=== PATIENT | female | born 1960 | race Two or more races ===

== ENCOUNTER 2019-12-07 22:55 | Emergency (ER) | payer BC ==
[~2019-12-07] VITALS: Ht 157.5 cm; Wt 106.6 kg
[2019-12-07 23:51] LABS: Basophils # (auto) 0.1 10 ^3/uL (0-0.2); Basophils % (auto) 0.9 % (0.0-2.0); Eosinophils # (auto) 0.1 10 ^3/uL (0-0.8); Hematocrit 38.6 % (36.0-46.0); Hemoglobin 13.2 g/dL (12.2-16.2); Lymphocytes # (auto) 1.9 10 ^3/uL (0.4-5.4); Mean Corpuscular Hgb Conc. 34.1 g/dL (32.0-36.0); Mean Corpuscular Volume 87.8 fL (80.0-100.0); Monocytes # (auto) 0.4 10 ^3/uL (0-1.3); Monocytes % (auto) 6.3 % (0.0-12.0); Neutrophils # (auto) 4.2 10 ^3/uL (1.6-8.6); Neutrophils % (auto) 62.8 % (37.0-80.0); Nucleated Red Blood Cells % 0.1 %; Platelet Count (auto) 259 10^3/uL (140-450); Red Cell Distribution Width 13.5 % (11.8-14.3); White Blood Cell 6.7 10^3/uL (4.4-10.8)
[2019-12-08 00:06] LABS: INR 0.94 (0.9-1.15); Partial Thromboplastin Time 27.1 sec (23.0-31.2)
[2019-12-08 00:14] LABS: Alanine Aminotransferase 38 U/L (13-56); Albumin 3.5 g/dL (3.4-5.0); Anion Gap 6 (5-15); Aspartate Aminotransferase 24 U/L (15-37); Blood Urea Nitrogen 22 mg/dL (7-18); Calcium 9.1 mg/dL (8.5-10.1); Carbon Dioxide 27 mmol/L (21-32); Chloride 106 mmol/L (98-107); GFR African American 108 mL/min; GFR Non-African American 89 mL/min; Glucose 108 mg/dL (74-106); Magnesium 1.8 mg/dL (1.6-2.6); Potassium 3.3 mmol/L (3.5-5.1); Sodium 139 mmol/L (136-145)
[2019-12-08 00:18] LABS: Alkaline Phosphatase 131 U/L (45-117); Bilirubin, Total 0.4 mg/dL (0.2-1.0); Total Protein 7.3 g/dL (6.4-8.2)
[2019-12-08] MEDS ORDERED: IOHEXOL 350 MG/ML 100ML IJ ONE (02:52)
[2019-12-08 06:00] VITALS: BP 131/74
== END 2019-12-08 06:18 | disposition home or self-care (01) ==
LOC: ER 22:58
DX: R07.89 Other chest pain (principal); F41.9 Anxiety disorder, unspecified
CPT/HCPCS: 36415; 71045; 71275; 80053; 83735; 83880; 84443; 84484; 85025; 85379; 85610; 85730; 93005; 99285; Q9967

== ENCOUNTER 2023-03-17 18:54 | Emergency (ER) | payer BC ==
[~2023-03-17] VITALS: Ht 160 cm; Wt 97.4 kg
[2023-03-17 19:52] VITALS: BP 127/61; PULSE 72; RESP 24; O2SAT 95
[2023-03-18 00:32] LABS: Urine Bacteria FEW /hpf (None Seen); Urine Blood Negative /uL (Negative); Urine Clarity Clear (Clear); Urine Color Yellow (Yellow); Urine Mucus FEW (None Seen); Urine Protein, UAD Negative (Negative); Urine Specific Gravity 1.022 (1.001-1.035); Urine Urobilinogen Normal (Negative); Urine WBC 15 /hpf (0 - 5); Urine pH 6.5 (5.0-8.0)
== END 2023-03-17 22:23 | disposition left against medical advice (07) ==
LOC: ER 18:54
DX: R19.7 Diarrhea, unspecified (principal); Z53.21 Procedure and treatment not carried out due to patient leaving prior to being seen by health care provider
CPT/HCPCS: 81001

== ENCOUNTER 2024-04-26 13:26 | Inpatient (IN) | payer BC ==
[~2024-04-26] VITALS: Ht 160 cm; Wt 97.6 kg
--- NOTE | 2024-04-26 14:47 | ED.PDOC ---
Musculoskeletal HPI Comments 63 y/o F, presents to the ED for CC of lower extremity swelling. Patient states, she has been experiencing right lower leg swelling with associated shortness of breath x3days. Patient denies any current blood thinners. Patient denies chest pain, N/V/D, fever, or chills. No other symptoms or modifying factors at this ti me. 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 Family History Family History: Reviewed,noncontributory to illness Social History Smoker: Non-Smoker Alcohol: Denies ETOH Use Drugs: Denies Drug Use Lives In: Home Constitutional: denies: chills, diaphoresis, fatigue, fever, malaise, sweats, weakness, others EENTM: denies: blurred vision, double vision, ear bleeding, ear discharge, ear drainage, ear pain, ear ringing, eye pain, eye redness, hearing loss, mouth pain, mouth swelling, nasal discharge, nose bleeding, nose congestion, nose pain, photophobia, tearing, throat pain, throat swelling, voice changes, others Respiratory: denies: cough, hemoptysis, orthopnea, SOB at rest, shortness of breath, SOB with excertion, stridor, wheezing, others Cardiovascular: denies: chest pain, dizzy spells, diaphoresis, Dyspnea on exertion, edema, irregular heart beat, left arm pain, lightheadedness, palpitations, PND, syncope, others Gastrointestinal: denies: abdomen distended, abdominal pain, blood streaked bowels, constipated, diarrhea, dysphagia, difficulty swallowing, hematemesis, melena, nausea, poor appetite, poor fluid intake, rectal bleeding, rectal pain, vomiting, others Genitourinary: denies: abnormal vagina bleeding, burning, dyspareunia, dysuria, flank pain, frequency, hematuria, incontinence, pain, , vagina discharge, urgency, others Neurological: denies: dizziness, fainting, headache, left sided numbness, left sided weakness, numbness, paresthesia, pre-existing deficit, right sided numbness, right sided weakness, seizure, speech problems, tingling, tremors, weakness, others Musculoskeletal: denies: back pain, gout, joint pain, joint swelling, muscle pain, muscle stiffness, neck pain, others Integumetry: denies: bruises, change in color, change in hair/nails, dryness, laceration, lesions, lumps, rash, wounds, others Allergic/Immunocompromised: denies: Difficulty Healing, Frequent Infections, Hives, Itching, others Hematologic/Lymphatic: denies: anemia, blood clots, easy bleeding, easy bruising, swollen glands, others Endocrine: denies: excessive hunger, excessive sweating, excessive thirst, excessive urination, flushing, intolerance to cold, intolerance to heat, unexplained weight gain, unexplained weight loss, others Psychiatric: denies: anxiety, bipolar disorder, depression, hopeless, panic disorder, schizophrenia, sleepless, suicidal, others All Other Systems: Reviewed and Negative Physical Exam General Appearance: Moderate Distress HEENT: Normal ENT Inspection, Pharynx Normal, TMs Normal Neck: Full Range of Motion, Non-Tender, Normal, Normal Inspection Respiratory: Chest Non-Tender, Lungs Clear, No Accessory Muscle Use, No Respiratory Distress, Normal Breath Sounds Cardiovascular: No Edema, No JVD, No Murmur, No Gallop, Normal Peripheral Pulses, Regular Rate/Rhythm Breast Exam: Deferred Gastrointestinal: No Organomegaly, Non Tender, No Pulsatile Mass, Normal Bowel Sounds, Soft Genitalia: Deferred Pelvic: Deferred Rectal: Deferred Extremities: No calf tenderness, Normal capillary refill, No pedal edema, Swelling (Right lower extremity swelling) Musculoskeletal : Apperance: Normal Neurologic: Alert, assistant vice president II-XII nml as Tested, No Motor Deficits, Normal Affect, Normal Mood, No Sensory Deficits Cerebellar Function: Normal Reflexes: Normal Skin: Dry, Normal Color, Warm Lymphatic: No Adenopathy Was a procedure done? Was a procedure done?: No Differential Diagnosis EXT Differential Diagnosis: Cellulitis, Deep Vein Thrombosis X-Ray, Labs, Meds, VS Vital Signs Date Time Temp Pulse Resp B/P (MAP) Pulse Ox O2 Delivery O2 Flow Rate FiO2 2/11/25 13:48 97.5 78 20 120/57 (78) 96 Lab Test 04/26/24 15:11 Range/Units White Blood Count 5.2 4.4-10.8 10^3/uL Red Blood Count 4.54 4.0-5.20 10^6/uL Hemoglobin 13.6 12.2-16.2 g/dL Hematocrit 40.5 36.0-46.0 % Mean Corpuscular Volume 89.3 80.0-100.0 fL Mean Corpuscular Hemoglobin 30.0 28.0-32.0 pg Mean Corpuscular Hemoglobin Concent 33.6 32.0-36.0 g/dL Red Cell Distribution Width 13.4 11.8-14.3 % Platelet Count 254 140-450 10^3/uL Mean Platelet Volume 7.0 6.9-10.8 fL Neutrophils (%) (Auto) 63.8 37.0-80.0 % Lymphocytes (%) (Auto) 29.6 10.0-50.0 % Monocytes (%) (Auto) 4.0 0.0-12.0 % Eosinophils (%) (Auto) 1.9 0.0-7.0 % Basophils (%) (Auto) 0.7 0.0-2.0 % Neutrophils # (Auto) 3.3 1.6-8.6 10 ^3/uL Lymphocytes # (Auto) 1.5 0.4-5.4 10 ^3/uL Monocytes # (Auto) 0.2 0-1.3 10 ^3/uL Eosinophils # (Auto) 0.1 0-0.8 10 ^3/uL Basophils # (Auto) 0 0-0.2 10 ^3/uL Nucleated Red Blood Cells 0.0 % D-Dimer, Quantitative 0.99 H 0.0-0.49 mg/L FEU Sodium Level 141 136-145 mmol/L Potassium Level 3.8 3.5-5.1 mmol/L Chloride Level 105 98-107 mmol/L Carbon Dioxide Level 31 20-31 mmol/L Anion Gap 5 5-15 Blood Urea Nitrogen 13 9-23 mg/dL Creatinine 0.56 0.550-1.02 mg/dL Glomerular Filtration Rate Calc 102 >90 mL/min BUN/Creatinine Ratio 23.2 H 10.0-20.0 Serum Glucose 130 H 74-106 mg/dL Calcium Level 10.1 8.7-10.4 mg/dL Troponin I High Sensitivity < 3 L </=34 ng/L LT LOWER DVT: Findings: No visible intraluminal venous thrombus. No evidence of incompressibility or abnormal color or spectral Doppler flow visualized in the left lower extremity veins including, the common femoral vein, deep femoral vein, proximal mid and distal superficial femoral vein, and popliteal vein. Greater saphenous vein grossly unremarkable. Impression: No sonographic evidence of left lower extremity deep venous thrombosis. ATED BY: CAROL GOEL DO DICTATED DATE/TIME: 04/26/241542 SIGNED BY: CAROL GOEL DO SIGNED DATE/TIME: 04/26/241542 CC: CT ANGIO: Findings: Pulmonary artery: Normal caliber of the pulmonary artery. No large central or large segmental pulmonary embolism. Lower neck: Normal thyroid. Lungs: No focal consolidation, pulmonary mass, or suspicious pulmonary nodule. Heart/Vascular Structures: Normal heart size. Normal caliber and enhancement of the aorta. Lymph Nodes: No adenopathy Pleura: No pleural effusion or significant pneumothorax. Musculoskeletal: No acute osseous abnormality. Upper abdomen: Limited portions of the upper abdomen are unremarkable. IMPRESSION: 1. No pulmonary embolism. 2. No acute intrathoracic abnormality. ATED BY: MARIBETH GRANDE Jr., DO DICTATED DATE/TIME: 04/26/241715 SIGNED BY: MARIBETH GRANDE Jr., DO SIGNED DATE/TIME: 04/26/241715 CC: At this time the patient's CBC is within normal limits The chemistry panel is within normal limits The patient was being admitted to the hospitalist An IV Hep-Lock was established. Images Reviewed?: Images reviewed and evaluated by me Time of 1ST Reevaluation: 14:45 Reevaluation 1ST: Unchanged Patient Education/Counseling: Diagnosis, Treatment, Prognosis Family Education/Counseling: No Family Present Additional Information - I reviewed the following notes from patient's past medical encounters: 03/17/24 DX: DIARRHEA - The following tests were ordered, and results were reviewed by me: TROPONIN, CBC, D-DIMER, LT LOWER DVT, CT ANGIO - I reviewed and agreed with the following test results read by other provider: LT LOWER DVT, CT ANGIO - I discussed treatments and results with medical personnel and: PATIENT Departure 1 Departure Time of Disposition: 18:39 Impression: Primary Impression: Shortness of breath Additional Impression: Right leg swelling Disposition: ADMITTED INPATIENT Admit to: Tele Condition: Fair Critical Care Note Critical Care Time?: No Stability Stability form required: Yes Unstable for transfer: Telemetry monitoring (Telemetry monitoring required), ED Physician Assesment (Clinical assesment) Heart Score Heart Score: Heart Score Response (Comments) Value History N/A 0 EKG N/A 0 Age N/A 0 Risk Factors N/A 0 Troponin N/A 0 Total 0 I personally scribed for KARTHIK KNIGHT MD ([email or web address]) on 04/26/24 at 14:47. Electronically submitted by Kelly Montalvo ([email or web address]). I personally scribed for KARTHIK KNIGHT MD ([email or web address]) on 04/26/24 at 15:31. Electronically submitted by Kelly Montalvo ([email or web address]). I personally scribed for KARTHIK KNIGHT MD ([email or web address]) on 04/26/24 at 16:07. Electronically submitted by Kelly Montalvo ([email or web address]). I personally scribed for KARTHIK KNIGHT MD ([email or web address]) on 04/26/24 at 17:20. Electronically submitted by Kelly Montalvo ([email or web address]). KARTHIK KNIGHT MD Apr 26, 2024 14:47
[2024-04-26 15:23] LABS: Basophils # (auto) 0 10 ^3/uL (0-0.2); Basophils % (auto) 0.7 % (0.0-2.0); Eosinophils # (auto) 0.1 10 ^3/uL (0-0.8); Eosinophils % (auto) 1.9 % (0.0-7.0); Hematocrit 40.5 % (36.0-46.0); Hemoglobin 13.6 g/dL (12.2-16.2); Lymphocytes # (auto) 1.5 10 ^3/uL (0.4-5.4); Lymphocytes % (auto) 29.6 % (10.0-50.0); Mean Corpuscular Hgb Conc. 33.6 g/dL (32.0-36.0); Mean Corpuscular Volume 89.3 fL (80.0-100.0); Monocytes # (auto) 0.2 10 ^3/uL (0-1.3); Neutrophils # (auto) 3.3 10 ^3/uL (1.6-8.6); Neutrophils % (auto) 63.8 % (37.0-80.0); Platelet Count (auto) 254 10^3/uL (140-450); Red Blood Cells 4.54 10^6/uL (4.0-5.20); Red Cell Distribution Width 13.4 % (11.8-14.3); White Blood Cell 5.2 10^3/uL (4.4-10.8)
--- NOTE | 2024-04-26 15:46 | DVH ---
Procedure: US LT Lower DVT Study Date and Requested Time: 04/26/2024 02:37 PM History: cp Comparison: None Technique: Multiple high resolution lin-scale images with and without compression obtained of the le ft lower extremity veins, including the common femoral vein, deep femoral vein, proximal mid and dist al superficial femoral vein, and popliteal vein. Additional limited images of the greater saphenous v ein also obtained. Augmentation performed as indicated. Color and spectral doppler flow images obtain ed as indicated. Findings: No visible intraluminal venous thrombus. No evidence of incompressibility or abnormal color or spectr al Doppler flow visualized in the left lower extremity veins including, the common femoral vein, deep femoral vein, proximal mid and distal superficial femoral vein, and popliteal vein. Greater saphenou s vein grossly unremarkable. Impression: No sonographic evidence of left lower extremity deep venous thrombosis.
[2024-04-26 15:47] LABS: Chloride 105 mmol/L (98-107); Potassium 3.8 mmol/L (3.5-5.1); Sodium 141 mmol/L (136-145)
[2024-04-26 15:48] LABS: Anion Gap 5 (5-15); Calcium 10.1 mg/dL (8.7-10.4); Carbon Dioxide 31 mmol/L (20-31)
[2024-04-26 15:53] LABS: BUN/Creatinine Ratio 23.2 (10.0-20.0); Blood Urea Nitrogen 13 mg/dL (9-23); Glucose 130 mg/dL (74-106)
[2024-04-26] MEDS: IOHEXOL 350 MG/ML 100ML IJ ONE (16:29)
--- NOTE | 2024-04-26 17:18 | DVH ---
INDICATION: sob COMPARISON STUDY: 12/08/2019 TECHNIQUE: Multidetector CTA of the chest was performed of the chest with 100 cc of intravenous contr ast. PULMONARY ANGIOGRAPHY PROTOCOL was utilized using a bolus-tracking technique centered on the elaine n pulmonary artery. Axial, coronal and sagittal multiplanar and MIP reformats were performed. Sagittal and coronal MIP images were submitted for evaluation. Radiation Dose Information: CT Dose: CTDI volume is 27.55 mGy. Dose-length product is 922.71 mGy*cm Omnipaque 350: 100 mL The dose indicators for CT are the volume Computed Tomography (CT) Dose Index (CTDIvol) and the Dose Length Product (DLP), and are measured in units of mGy and mGy-cm, respectively. These indicators are not patient dose, but values generated from the CT scanner acquisition factors. The report includes radiation exposure data for exposures received during this examination. Findings: Pulmonary artery: Normal caliber of the pulmonary artery. No large central or large segmental pulmo nary embolism. Lower neck: Normal thyroid. Lungs: No focal consolidation, pulmonary mass, or suspicious pulmonary nodule. Heart/Vascular Structures: Normal heart size. Normal caliber and enhancement of the aorta. Lymph Nodes: No adenopathy Pleura: No pleural effusion or significant pneumothorax. Musculoskeletal: No acute osseous abnormality. Upper abdomen: Limited portions of the upper abdomen are unremarkable. IMPRESSION: 1. No pulmonary embolism. 2. No acute intrathoracic abnormality.
[2024-04-26] MEDS ORDERED: MORPHINE SULFATE INJ 2 MG/ml SYRG IV PRN (22:00)
[2024-04-26] MEDS ORDERED: ACETAMINOPHEN 325 MG TAB PO PRN (22:00)
[2024-04-26] MEDS: SODIUM CHLOR 0.9% PF (SALINE LOCK) 10ML VIAL/SYR IV SCH (22:00)
[2024-04-26] MEDS ORDERED: NITROGLYCERIN 0.4 MG SL TAB SL PRN (22:00)
[2024-04-26 23:11] LABS: INR 0.95 (0.9-1.15); Prothrombin Time 10.1 sec (9.3-11.8)
[2024-04-26 23:12] LABS: Magnesium 1.8 mg/dL (1.6-2.6)
--- NOTE | 2024-04-26 23:22 | DVHHPRES ---
History of Present Illness Resident Creating Document: ENE HUGHES RESIDENT History of Present Illness ROMEL AMATO is a 63-year-old female with a PMH of HLD, HTN, DVT, hypothyroidism presented to the ED with the chief complaints of bilateral lower extremity swelling since Thursday. Patient reported she has been started having left lower extremity swelling on Thursday, did not resolve, even started having swelling in the right leg eventually, associated with shortness of breaths. Patient reported shortness of breath has been ongoing for past 2 weeks with even mild exertion. Patient reported she never experienced this kind of symptoms in past. Patient also reported sharp pain in the back of neck which is shock-like with a had moments. On my assessment patient denies orthopnea, PND, fever, nausea, vomiting, chest pain, diaphoresis and other acute associated symptoms. PMH: HTN since 8 years( on losartan, amlodipine), hypothyroidism for 2 years( on levothyroxine 75 mcg), DVT in 2012 PSH: Right knee surgery 2 times, left hip surgery Family Hx: AFib in sister, brain aneurysm in mom, diabetes in all family except patient Social Hx: Lives Alone. Occasional alcohol. Denies active smoking (smoker 20 years ago 1 pack per day for 10-15 years), and other drug abuse Alergies: No known allergies Home medications: Losartan 100 mg, amlodipine 10 mg, levothyroxine 75 mcg, tizanidine Review of Systems Review of Systems Patient seen and examined at the bedside. Reported no new complaints, ordered echocardiogram and other lab test. Constitutional: No: Fever, Chills, Sweats, Weakness, Malaise, Other Eyes: No: Pain, Vision change, Conjunctivae inflammation, Eyelid inflammation, Other, Redness ENT: No: Ear pain, Ear discharge, Nose pain, Nose discharge, Nose congestion, Mouth pain, Mouth swelling, Throat pain, Throat swelling, Other Respiratory: No: Cough, Dry, Shortness of breath, SOB with excertion, Wheezing, Hemoptysis, Pleuritic Pain, Sputum, Wheezing, Other Cardiovascular: Edema Gastrointestinal: No: Nausea, Vomiting, Abdominal Pain, Diarrhea, Constipation, Melena, Hematochezia, Other Genitourinary: No Dysuria, No Frequency, No Incontinence, No Hematuria, No Retention, No Other Musculoskeletal: No: other, neck pain, shoulder pain, arm pain, back pain, hand pain, leg pain, foot pain Skin: No: Rash, Lesions, Jaundice, Bruising, Other Neurological: No: Weakness, Numbness, Incoordination, Change in speech, Confusion, Seizures, Other Allergies: Coded Allergies: NO KNOWN ALLERGIES (Unverified , 12/08/19) Medications Current Medications Medications Dose Ordered Sig/Itzel Route Start Time Stop Time Status Last Admin Dose Admin Sodium Chloride 10 ml Q8HR IV 04/26/24 22:00 Enoxaparin Sodium 40 mg DAILY SC 04/27/24 10:00 Acetaminophen 650 mg Q6HP PRN PO 04/26/24 22:00 Nitroglycerin 0.4 mg Q5MINP PRN SL 04/26/24 22:00 Morphine Sulfate 2 mg Q30M PRN IV 04/26/24 22:00 Furosemide 40 mg DAILY IV 04/27/24 10:00 Losartan Potassium 100 mg DAILY PO 04/27/24 10:00 Exam Vital Signs Vital Signs Date Time Temp Pulse Resp B/P (MAP) Pulse Ox O2 Delivery O2 Flow Rate FiO2 04/26/24 20:24 98.7 80 18 119/67 (84) 95 98.7 Exam Pt is lying on bed General Appearance: Alert, Oriented X3, Cooperative, Not in acute distress HEENT: Atraumatic, Mucous membranes moist/pink Respiratory: Clear to auscultation, Normal air movement, No added sounds Cardiovascular: Regular rate, Normal S1, Normal S2, No murmurs Abdominal: Active bowel sounds, Soft, no distention, no tenderness Extremities: 2+ BLE edema, Normal pulses Skin: No Significant rash, except past surgical scars Neuro: Normal speech, sensorimotor deficits none Psych/Mental Status: Mental status NL, Mood NL Nurse was there as sharperone during examination Labs/Xrays Labs Test 04/26/24 22:39 04/26/24 15:11 Range/Units Prothrombin Time 10.1 9.3-11.8 sec Prothrombin Time INR 0.95 0.9-1.15 Activated Partial Thromboplast Time 27.0 24.5-34.5 SEC Hemoglobin A1c 5.4 <5.7 % A1C Magnesium Level 1.8 1.6-2.6 mg/dL White Blood Count 5.2 4.4-10.8 10^3/uL Red Blood Count 4.54 4.0-5.20 10^6/uL Hemoglobin 13.6 12.2-16.2 g/dL Hematocrit 40.5 36.0-46.0 % Mean Corpuscular Volume 89.3 80.0-100.0 fL Mean Corpuscular Hemoglobin 30.0 28.0-32.0 pg Mean Corpuscular Hemoglobin Concent 33.6 32.0-36.0 g/dL Red Cell Distribution Width 13.4 11.8-14.3 % Platelet Count 254 140-450 10^3/uL Mean Platelet Volume 7.0 6.9-10.8 fL Neutrophils (%) (Auto) 63.8 37.0-80.0 % Lymphocytes (%) (Auto) 29.6 10.0-50.0 % Monocytes (%) (Auto) 4.0 0.0-12.0 % Eosinophils (%) (Auto) 1.9 0.0-7.0 % Basophils (%) (Auto) 0.7 0.0-2.0 % Neutrophils # (Auto) 3.3 1.6-8.6 10 ^3/uL Lymphocytes # (Auto) 1.5 0.4-5.4 10 ^3/uL Monocytes # (Auto) 0.2 0-1.3 10 ^3/uL Eosinophils # (Auto) 0.1 0-0.8 10 ^3/uL Basophils # (Auto) 0 0-0.2 10 ^3/uL Nucleated Red Blood Cells 0.0 % D-Dimer, Quantitative 0.99 H 0.0-0.49 mg/L FEU Sodium Level 141 136-145 mmol/L Potassium Level 3.8 3.5-5.1 mmol/L Chloride Level 105 98-107 mmol/L Carbon Dioxide Level 31 20-31 mmol/L Anion Gap 5 5-15 Blood Urea Nitrogen 13 9-23 mg/dL Creatinine 0.56 0.550-1.02 mg/dL Glomerular Filtration Rate Calc 102 >90 mL/min BUN/Creatinine Ratio 23.2 H 10.0-20.0 Serum Glucose 130 H 74-106 mg/dL Calcium Level 10.1 8.7-10.4 mg/dL Troponin I High Sensitivity < 3 L </=34 ng/L B-Type Natriuretic Peptide 34.85 0-100 pg/mL Assessment/Plan Assessment/Plan # ?? Acute systolic VS diastolic CHF -admitted to telemetry -currently giving Lasix 40 mg, losartan -ordered EKG -Ordered echocardiogram, TSH, lipid panel # Uncontrolled HTN -monitor blood pressure -currently on losartan # Hypothyroidism -ordered new TSH -resume home meds # H/o LE DVT -ordered new DVT scan which showed negative PUD PPX: Not indicated for now VTE PPX: Lovenox Diet: Cardiac diet Goals of care discussed with the patient for more than 27 minutes: Full code status Case discussed with Dr. Hernandez, patient and nurse Plan discussed with: Patient, Other (RN) My Orders Orders - ENE HUGHES RESIDENT Procedure Category Date Status Time Admit ADMIT 04/26/24 Transmitted 21:52 Allergies ANDREA 04/26/24 In Process 21:52 Code Status CODE 04/26/24 Transmitted 21:52 Sodium Chloride Lock PHA 04/26/24 In Process (Saline Lock Ns) 22:00 Enoxaparin Sodium PHA 04/27/24 In Process (Lovenox) 10:00 Complete Blood Count LAB 04/27/24 Verified 04:00 Comprehensive LAB 04/27/24 Verified Metabolic Panel 04:00 Cardiac DIET 04/27/24 Transmitted Diet-2gna,Lofat,Lochol Breakfast Echo 2d Mode Cardiac US 04/26/24 Logged DOP 21:52 Condition: Stable ANDREA 04/26/24 In Process 21:52 Acetaminophen Tablet PHA 04/26/24 In Process (Tylenol Tablet) 22:00 Nitroglycerin PHA 04/26/24 In Process Sublingual (Ntrostat 22:00 Morphine Sulfate PHA 04/26/24 In Process Injection 22:00 Oxygen By Nasal RT 04/26/24 Transmitted Cannula 21:52 Stat Ekg For Chest ANDREA 04/26/24 In Process Pain 21:52 Notify Of Changes ANDREA 04/26/24 In Process From Base 21:52 Pad Machine Operator For ANDREA 04/26/24 In Process 24 Hours 21:52 Emergency Dysrhythmia ANDREA 04/26/24 In Process Protocol 21:52 Rhythm Strips Once ANDREA 04/26/24 In Process Every Shift 21:52 Thyroid Stimulating LAB 04/26/24 In Process Hormone 22:29 Urinalysis LAB 04/26/24 Logged 22:29 Magnesium LAB 04/26/24 In Process 22:29 Lipid Panel LAB 04/26/24 In Process 22:29 Drug Screen LAB 04/26/24 Logged 22:29 Furosemide Injection PHA 04/27/24 In Process (Lasix Injection) 10:00 Losartan Tablet PHA 04/27/24 In Process (Cozaar Tablet) 10:00 Electrocardigram EKG 04/26/24 Logged 22:29 Rapid Influenza A&B LAB 04/26/24 Logged 23:15 Covid19 Antigen [facility] 04/26/24 Logged Date of Service: Apr 26, 2024 Billing Provider: LIO HERNANDEZ MD Common Visit Codes: [id number] INP/OBS CARE (HIGH) ENE HUGHES RESIDENT Apr 26, 2024 23:22 LIO HERNANDEZ MD Apr 27, 2024 23:49
[2024-04-26] MEDS: FUROSEMIDE 40 MG/4 ML VIAL IV ONE (23:58)
[2024-04-27] VITALS (8 sets, daily range): BP systolic 95–114; BP diastolic 46–60; PULSE 60–78; RESP 11–15; TEMP 36.8; O2SAT 95–98
[2024-04-27 01:16] LABS: Urine Bacteria None Seen /hpf (None Seen)
[2024-04-27 01:32] LABS: Urine Blood Negative /uL (Negative); Urine Clarity Clear (Clear); Urine Color Colorless (Yellow); Urine Protein, UAD Negative (Negative); Urine Specific Gravity 1.012 (1.001-1.035); Urine Squamous Epithelial Cell FEW /hpf (<5); Urine Urobilinogen Normal (Negative); Urine WBC 6 /HPF (0-5)
[2024-04-27 01:50] LABS: COVID19 ANTIGEN SOFIA FIA NEGATIVE (NEGATIVE); Rapid Influenza A Negative (Negative); Rapid Influenza B Negative (Negative)
[2024-04-27 05:48] LABS: Basophils # (auto) 0.1 10 ^3/uL (0-0.2); Eosinophils # (auto) 0.3 10 ^3/uL (0-0.8); Eosinophils % (auto) 3.6 % (0.0-7.0); Hematocrit 39.9 % (36.0-46.0); Hemoglobin 13.4 g/dL (12.2-16.2); Lymphocytes # (auto) 2.5 10 ^3/uL (0.4-5.4); Mean Corpuscular Hgb Conc. 33.6 g/dL (32.0-36.0); Mean Corpuscular Volume 89.1 fL (80.0-100.0); Monocytes # (auto) 0.5 10 ^3/uL (0-1.3); Monocytes % (auto) 6.9 % (0.0-12.0); Neutrophils # (auto) 3.8 10 ^3/uL (1.6-8.6); Neutrophils % (auto) 53.5 % (37.0-80.0); Nucleated Red Blood Cells % 0.3 %; Platelet Count (auto) 226 10^3/uL (140-450); Red Blood Cells 4.48 10^6/uL (4.0-5.20); Red Cell Distribution Width 13.6 % (11.8-14.3); White Blood Cell 7.1 10^3/uL (4.4-10.8)
[2024-04-27 05:49] LABS: Albumin 4.2 g/dL (3.2-4.8); Alkaline Phosphatase 112 U/L (46-116); Anion Gap 8 (5-15); Aspartate Aminotransferase 33 U/L (13-40); Blood Urea Nitrogen 15 mg/dL (9-23); Calcium 9.7 mg/dL (8.7-10.4); Carbon Dioxide 28 mmol/L (20-31); Chloride 104 mmol/L (98-107); Glucose 91 mg/dL (74-106); Sodium 140 mmol/L (136-145)
[2024-04-27 05:50] LABS: Bilirubin, Total 0.6 mg/dL (0.2-1.0); Total Protein 6.7 g/dL (5.7-8.2)
[2024-04-27 05:57] LABS: Alanine Aminotransferase 47 U/L (7-40); Potassium 3.3 mmol/L (3.5-5.1)
[2024-04-27] MEDS: LEVOTHYROXINE SODIUM 25 MCG TAB PO SCH (06:17)
[2024-04-27] MEDS: LOSARTAN POTASSIUM 50 MG TAB PO SCH (09:00)
[2024-04-27] MEDS ORDERED: LOSARTAN POTASSIUM 50 MG TAB PO SCH (10:00)
[2024-04-27] MEDS ORDERED: FUROSEMIDE 40 MG/4 ML VIAL IV SCH (10:00)
[2024-04-27] MEDS: FUROSEMIDE 40 MG/4 ML VIAL IV SCH (10:00)
[2024-04-27] MEDS: POTASSIUM CHL 20 Meq TABLET PO ONE (10:26)
[2024-04-27] MEDS: ENOXAPARIN SOD 40 MG/0.4 ML SYRINGE SC SCH (10:27)
[2024-04-27 13:30] LABS: Amphetamine Screen, Urine Neg (NEGATIVE); Barbiturate Scree,Urine Neg (NEGATIVE); Benzodiazephine Screen, Urine Neg (NEGATIVE); Cocaine Screen, Urine Neg (NEGATIVE); Opiate Scree,Urine Neg (NEGATIVE); Phencyclidine Screen, Urine Neg (NEGATIVE)
[2024-04-27 13:37] LABS: Cannabinoid Screen, Urine Neg (NEGATIVE)
--- NOTE | 2024-04-27 15:33 | DVHSR ---
APPROVED REPORT EXAM: Two-dimensional and M-mode echocardiogram with Doppler and color Doppler. Blood Pressure: 95/55 mmHg INDICATION ? chf RISK FACTORS Height: 5'3, Weight: 215 DIMENSIONS LVDd4.4 (3.8-5.7cm)LA (2D)3.7 (1.9-4.0cm)Aortic Root3.0 (2.0-3.7cm) LVDs2.8 (2.5-4.0cm)LA (MM) (1.9-4.0cm)Aortic Cusp Exc1.5 (1.5-2.0cm) EF (%) 64.0 (55-70%)Rt. Atrium3.0 (1.9-4.0cm)Asc. Aorta cm IVSd0.7 (0.7-1.1cm)RV (D)3.6 (1.8-2.4cm) PWd0.7 (0.7-1.1cm) Mitral Valve MitralMitral Stenosis E wave0.65m/sMV Mean GR.mmHg A wave0.88m/sMV Peak GR.34mmHg E/A ratio0.72D MVAcm2 DECEL [id number] 1/2 Timems Aortic Valve Aortic ValveAortic Stenosis V10.99m/Michelle Mean GR.3mmHg V21.24m/Michelle Peak GR.6mmHg LVOT Diameter1.9 (1.8-2.4cm)Doppler AVA2.26cm2 Pulmonic Valve V20.98m/s Tricuspid Valve TR Velocity2.27m/s [id number] Conclusion lvef 60% by visual estimate mild lvh normal rv function, mild enlarged moderate left atrium enlarged no severe valve abnormalities noted
--- NOTE | 2024-04-27 15:42 | DVHPNRES ---
Progress Note Date Seen: Apr 27, 2024 Resident Creating Document: SHIVA SAHU RESIDENT Medical Necessity Reason Pt with a Central, PICC or Fol: No (RN) Subjective Review of Systems Patient is 63 years old female with past medical history of hypertension, hyperlipidemia, DVT in 2017 after left hip surgery, hypothyroidism came with a complaint of bilateral leg swelling. As the patient patient has been having bilateral leg swelling for last 2 weeks. The swelling started on the left leg followed by right leg which is getting worse for last 2 weeks. The patient also reported exertional short of breath. The patient reported he can walk up to the parking lot then she gets short of breath. Patient reported she recently started taking amlodipine 1 month before. Patient also complained of neck pain for last 2 months, intermittent, no radiation, no aggravating or relieving factor. The patient denied any chest pain, palpitation, dizziness, change in vision, dysarthria, acute joint swelling. Initial lab workup revealed WBC 5.2, hemoglobin 13, platelet 254, sodium 141, potassium 3.8, serum creatinine 0.56, HGB A1c 5.4, magnesium 1.8, troponin 9> 3, BNP 34, TSH 3.7. CT angio revealed no pulmonary embolism. No acute intra thoracic abnormality. Doppler study of left lower extremity - negative for DVT. Echo 2D revealed LVEF 60%. Mild LVH. Moderate left atrial enlargement. Right ventricle mildly enlarged. PMH: HTN since 8 years( on losartan, amlodipine), hypothyroidism for 2 years( on levothyroxine 75 mcg), DVT in 2012 PSH: Right knee surgery 2 times, left hip surgery Family Hx: AFib in sister, brain aneurysm in mom, diabetes in all family except patient Social Hx: Lives Alone. Occasional alcohol. Denies active smoking (smoker 20 years ago 1 pack per day for 10-15 years), and other drug abuse Alergies: No known allergies Home medications: Losartan 100 mg, amlodipine 10 mg, levothyroxine 75 mcg, tizanidine Review of Systems Patient seen and examined at the bedside. Reported no new complaints, ordered echocardiogram and other lab test. Constitutional: No: Fever, Chills, Sweats, Weakness, Malaise, Other Eyes: No: Pain, Vision change, Conjunctivae inflammation, Eyelid inflammation, Other, Redness ENT: No: Ear pain, Ear discharge, Nose pain, Nose discharge, Nose congestion, Mouth pain, Mouth swelling, Throat pain, Throat swelling, Other Respiratory: No: Cough, Dry, Shortness of breath, SOB with excertion, Wheezing, Hemoptysis, Pleuritic Pain, Sputum, Wheezing, Other Cardiovascular: Edema Gastrointestinal: No: Nausea, Vomiting, Abdominal Pain, Diarrhea, Constipation, Melena, Hematochezia, Other Genitourinary: No Dysuria, No Frequency, No Incontinence, No Hematuria, No Retention, No Other Musculoskeletal: No: other, neck pain, shoulder pain, arm pain, back pain, hand pain, leg pain, foot pain Skin: No: Rash, Lesions, Jaundice, Bruising, Other Neurological: No: Weakness, Numbness, Incoordination, Change in speech, Confusion, Seizures, Other Allergies: Coded Allergies: NO KNOWN ALLERGIES (Unverified , 12/08/19) The patient was seen today for clinical evaluation. Labs and chart reviewed. The patient reported feeling better today. Complete BP bilateral leg swelling. As blood pressure was trending down all antihypertensive medication has been on hold. We will continue blood pressure. Doppler study of left lower extremity - negative for DVT. Echo 2D revealed LVEF 60%. Mild LVH. Moderate left atrial enlargement. Right ventricle mildly enlarged. Objective vital signs Vital Sign Date Time Temp Pulse Resp B/P (MAP) Pulse Ox O2 Delivery O2 Flow Rate FiO2 04/27/24 13:00 98.5 63 15 97/46 (63) 98 98.5 04/27/24 02:20 Room Air* 0 21 Total Intake and Output 04/26/24 04/26/24 04/27/24 15:00 23:00 07:00 Intake Total 200 ml Balance 200 ml medications Current Medications Medications Dose Ordered Sig/Itzel Route Start Time Stop Time Status Last Admin Dose Admin Sodium Chloride 10 ml Q8HR IV 04/26/24 22:00 04/27/24 06:08 10 ML Enoxaparin Sodium 40 mg DAILY SC 04/27/24 10:00 04/27/24 10:27 40 MG Acetaminophen 650 mg Q6HP PRN PO 04/26/24 22:00 Nitroglycerin 0.4 mg Q5MINP PRN SL 04/26/24 22:00 Morphine Sulfate 2 mg Q30M PRN IV 04/26/24 22:00 Levothyroxine Sodium 75 mcg QAM@0600 PO 04/27/24 06:00 04/27/24 06:17 75 MCG Examination General examination- awake, alert, oriented, conversant HEENT- PEERLA, no acute nasal discharge Cardiovascular- S1-S2 audible, rate and rhythm regular, no murmur Respiratory- CTAB, no wheeze or rhonchi Gastrointestinal-nontender, bowel sound+. Nondistended Musculoskeletal-no acute joint swelling or tenderness or redness# Lower extremity- bilateral leg edema++ Neurological- cranial nerves intact, no acute dysarthria or dysphagia Psychiatry- denies depression or SI or HI Skin- no acute rash or purpura laboratory and microbiology Laboratory Tests 04/27/24 04:55 Test 04/27/24 04:55 Range/Units Serum Glucose 91 74-106 mg/dL Problem List/Assessment/Plan Problem List/Assessment/Plan #Bilateral leg swelling with the exertional dyspnea likely due to congestive heart failure, systolic versus diastolic # hypertensive heart disease # hypothyroidism # history of lower extremity DVT # hyperlipidemia # neck pain under evaluation # hypokalemia likely drug-induced Lasix-replenished -CT angio revealed no pulmonary embolism. No acute intra thoracic abnormality. - Doppler study of left lower extremity - negative for DVT. - Echo 2D revealed LVEF 60%. Mild LVH. Moderate left atrial enlargement. Right ventricle mildly enlarged. -EKG sinus rhythm, no acute ST elevation or depression -stop all antihypertensive medication as blood pressure was trending down -continue Lasix as p.r.n. as prescribed -levothyroxine 75 mcg p.o. daily -continue observation as prescribed -monitor blood pressure -plan is to do outpatient stress test -monitor orthostatic vitals tomorrow morning -pending stool cervical spine and Doppler study of the right lower extremity to rule out DVT Goals of care/advance care planning; FULL CODE; discussed with the patient >15 minutes PUD prophylaxis: Not required at this moment DVT prophylaxis: Lovenox Plan discussed with Dr. Hui , nursing staff, patient Total time spent on patient evaluation, chart review, assessment and plan, discussion discussion >31 minutes Plan discussed with: Patient Plan discussed with: Patient, Other SHIVA SAHU RESIDENT Apr 27, 2024 15:42
--- NOTE | 2024-04-27 16:19 | DVH ---
RIGHT LOWER EXTREMITY VENOUS DOPPLER CLINICAL HISTORY: leg swelling TECHNIQUE: Right lower extremity venous doppler study was performed. COMPARISON: US LT LOWER DVT on DOS: 04/26/24 FINDINGS: The right common femoral, superficial femoral, popliteal, posterior tibial veins appear patent with n ormal augmentation, phasicity, compressibility and color-flow. . IMPRESSION: 1. No sonographic evidence of DVT in the right leg. HS:Y
[2024-04-27] MEDS: FUROSEMIDE 20 MG/2 ML VIAL IV ONE (16:28)
--- NOTE | 2024-04-27 17:27 | DVHDSRES ---
Discharge Summary Date of Admission Resident Creating Document: SHIVA SAHU RESIDENT Apr 26, 2024 at 21:52 Date of Discharge: Apr 27, 2024 Admitting Diagnosis Suspected congestive heart failure Labs/Diagnostic Data: Laboratory Results Test 04/27/24 04:55 04/27/24 01:00 04/27/24 00:55 04/26/24 22:39 White Blood Count 7.1 10^3/uL (4.4-10.8) Red Blood Count 4.48 10^6/uL (4.0-5.20) Hemoglobin 13.4 g/dL (12.2-16.2) Hematocrit 39.9 % (36.0-46.0) Mean Corpuscular Volume 89.1 fL (80.0-100.0) Mean Corpuscular Hemoglobin 30.0 pg (28.0-32.0) Mean Corpuscular Hemoglobin Concent 33.6 g/dL (32.0-36.0) Red Cell Distribution Width 13.6 % (11.8-14.3) Platelet Count 226 10^3/uL (140-450) Mean Platelet Volume 8.0 fL (6.9-10.8) Neutrophils (%) (Auto) 53.5 % (37.0-80.0) Lymphocytes (%) (Auto) 35.0 % (10.0-50.0) Monocytes (%) (Auto) 6.9 % (0.0-12.0) Eosinophils (%) (Auto) 3.6 % (0.0-7.0) Basophils (%) (Auto) 1.0 % (0.0-2.0) Neutrophils # (Auto) 3.8 10 ^3/uL (1.6-8.6) Lymphocytes # (Auto) 2.5 10 ^3/uL (0.4-5.4) Monocytes # (Auto) 0.5 10 ^3/uL (0-1.3) Eosinophils # (Auto) 0.3 10 ^3/uL (0-0.8) Basophils # (Auto) 0.1 10 ^3/uL (0-0.2) Nucleated Red Blood Cells 0.3 % Sodium Level 140 mmol/L (136-145) Potassium Level 3.3 mmol/L (3.5-5.1) Chloride Level 104 mmol/L (98-107) Carbon Dioxide Level 28 mmol/L (20-31) Anion Gap 8 (5-15) Blood Urea Nitrogen 15 mg/dL (9-23) Creatinine 0.60 mg/dL (0.550-1.02) Glomerular Filtration Rate Calc 100 mL/min (>90) BUN/Creatinine Ratio 25.0 (10.0-20.0) Serum Glucose 91 mg/dL (74-106) Calcium Level 9.7 mg/dL (8.7-10.4) Total Bilirubin 0.6 mg/dL (0.2-1.0) Aspartate Amino Transferase (AST) 33 U/L (13-40) Alanine Aminotransferase (ALT) 47 U/L (7-40) Alkaline Phosphatase 112 U/L (46-116) Total Protein 6.7 g/dL (5.7-8.2) Albumin 4.2 g/dL (3.2-4.8) Urine Color Colorless (Yellow) Urine Clarity Clear (Clear) Urine pH 6.0 (5.0-9.0) Urine Specific [place] 1.012 (1.001-1.035) Urine Protein Negative (Negative) Urine Ketones Negative (Negative) Urine Blood Negative /uL (Negative) Urine Nitrite 1+ (Negative) Urine Bilirubin Negative (Negative) Urine Urobilinogen Normal mg/dL (Negative) Urine Leukocyte Esterase 2+ /uL (Negative) Urine RBC 1 /hpf (0 - 4) Urine Microscopic WBC 6 /HPF (0-5) Urine Squamous Epithelial Cells Few /hpf (<5) Urine Bacteria None seen /hpf (None Seen) Urine Glucose Normal mg/dL (Normal) Urine Opiates Screen Neg (NEGATIVE) Urine Fentanyl Screen Neg (NEGATIVE) Urine Barbiturates Screen Neg (NEGATIVE) Urine Phencyclidine Screen Neg (NEGATIVE) Urine Amphetamines Screen Neg (NEGATIVE) Urine Benzodiazepines Screen Neg (NEGATIVE) Urine Cocaine Screen Neg (NEGATIVE) Urine Cannabinoids Screen Neg (NEGATIVE) Influenza Type A Antigen Negative (Negative) Influenza Type B Antigen Negative (Negative) SARS-CoV-2 Antigen (Rapid) Negative (NEGATIVE) Prothrombin Time 10.1 sec (9.3-11.8) Prothrombin Time INR 0.95 (0.9-1.15) Activated Partial Thromboplast Time 27.0 SEC (24.5-34.5) Hemoglobin A1c 5.4 % A1C (<5.7) Magnesium Level 1.8 mg/dL (1.6-2.6) Triglycerides Level 133 mg/dL (< 150) Cholesterol Level 154 mg/dL (< 200) LDL Cholesterol 82 mg/dL (< 100) HDL Cholesterol 63 mg/dL (40-59) Thyroid Stimulating Hormone (TSH) 3.70 uIU/mL (0.55-4.78) Test 04/26/24 15:11 D-Dimer, Quantitative 0.99 mg/L FEU (0.0-0.49) Troponin I High Sensitivity < 3 ng/L (</=34) B-Type Natriuretic Peptide 34.85 pg/mL (0-100) Other Laboratory Tests 04/27/24 04:55 Brief Hx & Hospital Course: Patient is 63 years old female with past medical history of hypertension, hyperlipidemia, DVT in 2017 after left hip surgery, hypothyroidism came with a complaint of bilateral leg swelling. As the patient patient has been having bilateral leg swelling for last 2 weeks. The swelling started on the left leg followed by right leg which is getting worse for last 2 weeks. The patient also reported exertional short of breath. The patient reported he can walk up to the parking lot then she gets short of breath. Patient reported she recently started taking amlodipine 1 month before. Patient also complained of neck pain for last 2 months, intermittent, no radiation, no aggravating or relieving factor. The patient denied any chest pain, palpitation, dizziness, change in vision, dysarthria, acute joint swelling. Initial lab workup revealed WBC 5.2, hemoglobin 13, platelet 254, sodium 141, potassium 3.8, serum creatinine 0.56, HGB A1c 5.4, magnesium 1.8, troponin 9> 3, BNP 34, TSH 3.7. Patient tested negative for COVID-19 and influenza type A and B. UDS negative. CT angio revealed no pulmonary embolism. No acute intra thoracic abnormality. Doppler study of bilateral lower extremity - negative for DVT. Echo 2D revealed LVEF 60%. Mild LVH. Moderate left atrial enlargement. Right ventricle mildly enlarged. Hospital course-patient came to the hospital due to bilateral leg swelling and exertional dyspnea. Patient was admitted with a suspicion of acute congestive heart failure. Initial lab workup revealed-Initial lab workup revealed WBC 5.2, hemoglobin 13, platelet 254, sodium 141, potassium 3.8, serum creatinine 0.56, HGB A1c 5.4, magnesium 1.8, troponin 9> 3, BNP 34, TSH 3.7. Patient tested negative for COVID-19 and influenza type A and B. UDS negative. CT angio revealed no pulmonary embolism. No acute intra thoracic abnormality. Doppler study of bilateral lower extremity - negative for DVT. Echo 2D revealed LVEF 60%. Mild LVH. Moderate left atrial enlargement. Right ventricle mildly enlarged. Patient's blood pressure was trending down initially which went up with the stoppage of antihypertensive medication and diuretics. Patient reported feeling better today. Patient's leg swelling is likely due to amlodipine versus venous insufficiency. Patient was advised to hold all antihypertensive medication except Lasix 20 mg p.o. daily for 7 days until patient sees her primary care physician in 1 week. Patient was hemodynamically stable on discharge. Patient's meds were sent to the pharmacy electronically. Assessment and diagnosis- #Bilateral leg swelling likely due to fycc-fjwliqi-nhgzgquzlc/venous insufficiency # ruled out acute congestive heart failure # hypertensive heart disease # hypothyroidism # history of lower extremity DVT # hyperlipidemia # neck pain likely due to musculoskeletal/cervical spondylosis # hypokalemia likely drug-induced Lasix-replenished Discharge plan- Continue Lasix 20 mg p.o. daily for 7 days Hold all antihypertensive medication until follow up by the primary care physician If blood pressure is persistently elevated please call your primary care physician Please follow up with your primary care physician in 1 week Continue levothyroxine 75 mcg p.o. daily Ibuprofen 400 mg 3 times a day as needed for 7 days after a meal Pepcid 20 mg p.o. 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 COMPARISON: US LT LOWER DVT on DOS: 04/26/24 FINDINGS: The right common femoral, superficial femoral, popliteal, posterior tibial veins appear patent with normal augmentation, phasicity, compressibility and color- flow. . IMPRESSION: 1. No sonographic evidence of DVT in the right leg. HS:Y ATED BY: CHAZ DAVISON MD DICTATED DATE/TIME: 04/27/241615 SIGNED BY: CHAZ DAVISON MD SIGNED DATE/TIME: 04/27/24 [facility] [place] [place] [address] Ph: [phone] DIAGNOSTIC IMAGING Diagnostic Imaging Report : [id number] Signed PATIENT: ROMEL AMATO MACCT: [id number] UNIT: [id number] : 1960 LOC: ER ROOM / BED: / AGE / SEX: 63 / F ADM STATUS: REG ER SERVICE 1430 ORDERING PHYSICIAN: KARTHIK KNIGHT MD PROCEDURE(s): LLDVT - LT Lower DVT REASON: cp ORDER NUMBER(s): [id number], ACCESSION NUMBER(s): [id number] Procedure: US LT Lower DVT Study Date and Requested Time: 04/26/2024 02:37 PM History: cp Comparison: None Technique: Multiple high resolution lin-scale images with and without compression obtained of the left lower extremity veins, including the common femoral vein, deep femoral vein, proximal mid and distal superficial femoral vein, and popliteal vein. Additional limited images of the greater saphenous vein also obtained. Augmentation performed as indicated. Color and spectral doppler flow images obtained as indicated. Findings: No visible intraluminal venous thrombus. No evidence of incompressibility or abnormal color or spectral Doppler flow visualized in the left lower extremity veins including, the common femoral vein, deep femoral vein, proximal mid and distal superficial femoral vein, and popliteal vein. Greater saphenous vein grossly unremarkable. Impression: No sonographic evidence of left lower extremity deep venous thrombosis. ATED BY: CAROL GOEL DO DICTATED DATE/TIME: 04/26/24 154 SIGNED BY: CAROL GOEL DO SIGNED DATE/TIME: 04/26/24 154 CC: Condition at Discharge: Stable Final Diagnosis/Problems List #Bilateral leg swelling likely due to djvj-rwvaika-saixjvhjqk/venous insufficiency # ruled out acute congestive heart failure # hypertensive heart disease # hypothyroidism # history of lower extremity DVT # hyperlipidemia # neck pain likely due to musculoskeletal/cervical spondylosis # hypokalemia likely drug-induced Lasix-replenished Discharge Disposition: Home (RN) Discharge Instruct/Medications Follow Up/Referral: Continue Lasix 20 mg p.o. daily for 7 days Hold all antihypertensive medication until follow up by the primary care physician If blood pressure is persistently elevated please call your primary care physician Please follow up with your primary care physician in 1 week Continue levothyroxine 75 mcg p.o. daily Please repeat BNP with the primary care physician on coming PSH Please keep a record of blood pressure to be reviewed by the primary care physician Please use compression socks for bilateral leg swelling Please follow up with a gas distribution plant operator for Cervical Spondylosis Medications: Continue Lasix 20 mg p.o. daily for 7 days Hold all antihypertensive medication until follow up with the primary care physician Continue levofloxacin 75 mg p.o. daily Ibuprofen 400 mg 3 times a day as needed for 7 days after a meal Pepcid 20 mg p.o. 2 times a day for 10 days Discharge Statement: "Patient was advised to return to the ER or call 911 if any headaches, dizziness, shortness of breath, chest pain, abdominal pain, bleeding, fevers, or worsening of medical condition. Patient was counseled about treatment plan, medications, possible side effects, patientverbalized understanding. All questions were answered to the best of my ability. This discharge took greater then 30 minutes in planning, reviewing documentation, counseling the patient, and discussing with other team members." ASSESSMENT ASSESSMENT Assessment SHIVA SAHU RESIDENT Apr 27, 2024 17:27
[2024-04-27] MEDS ORDERED: FURO1TAB33 PO (17:33)
[2024-04-27] MEDS ORDERED: IBUP-1454 PO (18:21)
[2024-04-27] MEDS ORDERED: FAMO20TA10 PO (18:21)
--- NOTE | 2024-04-27 19:06 | DVH ---
INDICATION: Neck pain TECHNIQUE: 3 views of the cervical spine were obtained. COMPARISON: None FINDINGS: The cervical spine is visualized from C1-C7. There is loss of the normal cervical lordosis which can be positional. No fractures or subluxations are identified. Multilevel degenerative changes of the spine. Alignment appears unremarkable. Prevertebral soft tissues are within normal limits. IMPRESSION: 1. No evidence for fracture or subluxation.
[2024-04-28 10:28] LABS: Hepatitis B Surface Antigen Negative (Negative); Hepatitis C Antibody Negative (Negative)
--- NOTE | 2024-04-29 12:41 | ECG ---
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
== END 2024-04-27 19:30 | disposition home or self-care (01) | DRG 552 ==
LOC: ER 13:26 → OVERFLOW 21:52
PROVIDERS: ADMIT Student in an Organized Health Care Education/Training Program; ATTEND Emergency Medicine
DX: M47.812 Spondylosis without myelopathy or radiculopathy, cervical region (principal); I87.2 Venous insufficiency (chronic) (peripheral); E03.9 Hypothyroidism, unspecified; E78.5 Hyperlipidemia, unspecified; Z20.822 Contact with and (suspected) exposure to COVID-19; E87.6 Hypokalemia; Z86.718 Personal history of other venous thrombosis and embolism; Z79.01 Long term (current) use of anticoagulants
CPT/HCPCS: 36415; 71275; 72040; 80048; 80053; 80061; 80307; 81001; 83036; 83735; 83880; 84443; 84484; 85025; 85379; 85610; 85730; 86803; 87340; 87426; 87804; 93005; 93306; 93971; G0378

== ENCOUNTER 2025-03-02 20:31 | Inpatient (IN) | payer BC ==
[~2025-03-02] VITALS: Ht 160 cm; Wt 92.0 kg
[~2025-03-02 20:31] MED LIST: IBUP-1454 PO
--- NOTE | 2025-03-02 21:03 | ED.PDOC ---
History of Present Illness HPI Comments 64-year-old female who came to ER for chest pains. Patient does have history of hypertension, thyroid disease, anxiety. Has been having intermittent episodes of midsternal chest pains, aching, nonradiating, 6/10 intensity for the past 3 days. Associated with shortness of breath, dizziness, fatigability and weakness. Noted also headaches and nausea. REVIEW OF SYSTEMS: No fever, no chills, or fatigue HEENT: No sore throat, no earache, no congestion, no neck pain. Cardiac: (+) chest pain. No palpitations. Lungs: (+) shortness of breath, no cough. GI: (+) nausea, no vomiting, no diarrhea, no constipation, no abdominal pain : No dysuria, frequency, or urgency. No hematuria. Musculoskeletal: No joint pain , no joint swelling, no extremity edema. Skin: No rash, no itching. Neuro: (+) headache, (+) dizziness, (+) weakness EXAM: General: Awake, alert and oriented. No acute distress. Skin: Skin in warm, dry and intact. Appropriate color for ethnicity. HEENT: The head is normocephalic and atraumatic. Conjunctivae are clear without exudates or hemorrhage. Sclera is non-icteric. EOM are intact. No signs of nystagmus. Eyelids are normal in appearance without swelling or lesions. Oral mucosa is pink and moist Neck: The neck is supple with normal range of motion. No JVD. Cardiac: Heart rate and rhythm are normal. No murmurs, gallops, or rubs are auscultated. Respiratory: No signs of respiratory distress. Lung sounds are clear in all lobes bilaterally without rales, rhonchi, or wheezes. Abdominal: Abdomen is soft, non-tender without distention. Bowel sounds are present and normoactive in all four quadrants. Extremities: Upper and lower extremities are atraumatic in appearance without deformity or edema. Neurological: The patient is awake, alert and oriented to person, place, and time with normal speech. Speech is clear. There is no facial asymmetry. Psychiatric: Appropriate mood and affect. Good judgement and insight. Chief Complaint: Chest Pain Time Seen by MD: 21:01 Primary Care Provider: KELLY Robin Notes: Nurses Notes Allergies: Coded Allergies: NO KNOWN ALLERGIES (Unverified , 12/08/19) Home Meds Active Scripts Ibuprofen (Ibuprofen) 600 Mg Tab, 400 MG PO TID PRN for 10 Days, #30 TAB Prov:SHIVA SAHU RESIDENT 04/27/24 Reported Medications Levothyroxine Sodium (Levothyroxine Sodium) 75 Mcg Tab, PO, TAB 03/03/25 Sertraline Hcl (Sertraline Hcl) 50 Mg Tab, 1 TAB PO, #30 TAB 5 Refills 03/03/25 Losartan Potassium (Losartan Potassium) 100 Mg Tab, 1 TAB PO, #30 TAB 5 Refills 03/03/25 Amlodipine Besylate (Amlodipine Besylate) 10 Mg Tab, 1 TAB PO, #30 TAB 5 Refills 03/03/25 Information Source: Patient Mode of Arrival: Ambulatory Past Medical History PAST MEDICAL HISTORY: Anxiety, High Lipids, HTN, Thyroid Past Medical History (Other): DVT Surgical History: Denies all surgeries 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 Was a procedure done?: No EKG EKG : Comments No STEMI Differential Dx Considerations may include: Anemia, electrolyte imbalance, anxiety, coronary artery disease, [place], chest pains X-Ray, Labs, Meds, VS Vital Signs Date Time Temp Pulse Resp B/P (MAP) Pulse Ox O2 Delivery O2 Flow Rate FiO2 03/02/25 23:31 63 03/02/25 22:42 98.4 58 20 137/68 (91) 95 98.4 03/02/25 21:30 67 03/02/25 21:25 Room Air* 0 21 03/02/25 20:42 70 03/02/25 20:33 98.0 74 16 148/93 96 98.0 Lab Test 03/02/25 21:36 03/02/25 20:39 Range/Units Troponin I High Sensitivity < 3 L < 3 L </=34 ng/L White Blood Count 5.2 4.4-10.8 10^3/uL Red Blood Count 4.46 4.0-5.20 10^6/uL Hemoglobin 13.7 12.2-16.2 g/dL Hematocrit 40.2 36.0-46.0 % Mean Corpuscular Volume 90.1 80.0-100.0 fL Mean Corpuscular Hemoglobin 30.7 28.0-32.0 pg Mean Corpuscular Hemoglobin Concent 34.1 32.0-36.0 g/dL Red Cell Distribution Width 13.2 11.8-14.3 % Platelet Count 258 140-450 10^3/uL Mean Platelet Volume 7.0 6.9-10.8 fL Neutrophils (%) (Auto) 56.0 37.0-80.0 % Lymphocytes (%) (Auto) 35.8 10.0-50.0 % Monocytes (%) (Auto) 6.3 0.0-12.0 % Eosinophils (%) (Auto) 1.3 0.0-7.0 % Basophils (%) (Auto) 0.6 0.0-2.0 % Neutrophils # (Auto) 2.9 1.6-8.6 10 ^3/uL Lymphocytes # (Auto) 1.9 0.4-5.4 10 ^3/uL Monocytes # (Auto) 0.3 0-1.3 10 ^3/uL Eosinophils # (Auto) 0.1 0-0.8 10 ^3/uL Basophils # (Auto) 0 0-0.2 10 ^3/uL Nucleated Red Blood Cells 0.1 % Sodium Level 139 136-145 mmol/L Potassium Level 3.7 3.5-5.1 mmol/L Chloride Level 104 98-107 mmol/L Carbon Dioxide Level 28 20-31 mmol/L Anion Gap 7 5-15 Blood Urea Nitrogen 15 9-23 mg/dL Creatinine 0.65 0.550-1.02 mg/dL Glomerular Filtration Rate Calc 98 >90 mL/min BUN/Creatinine Ratio 23.1 H 10.0-20.0 Serum Glucose 136 H 74-106 mg/dL Calcium Level 9.7 8.7-10.4 mg/dL B-Type Natriuretic Peptide 32.15 0-100 pg/mL Current Medications Medications (Trade) Dose Ordered Sig/Itzel Route Start Time Stop Time Status Last Admin Aspirin 324 mg ONCE ONCE PO 03/02/25 21:15 03/02/25 21:16 DC 03/02/25 21:25 Time of 1ST Reevaluation: 20:52 Reevaluation 1ST: Unchanged Patient Education/Counseling: Need For Follow Up Family Education/Counseling: No Family Present SEPSIS Sepsis Screen Date sepsis recognized/suspect: Mar 02, 2025 Time Sepsis recognized/suspect: 2035 Recent Procedure: No On Antibiotic Therapy: No Respiratory Rate >20: No Heart Rate >90: No Temp<36 C (96.8 F) or >38.3 C: No SBP <90 or MAP <65 mmHG: No New Acute Mental Status Change: No Is the patient on CPAP, BIPAP,: No Physician Orders Chest Xray 1 View (03/02/25 21:06) Embalmer Assistant (03/02/25 ) Code Status (03/02/25 23:11) Oxygen Per Hour (03/02/25 23:11) Vital Signs Date Time Temp Pulse Resp B/P (MAP) Pulse Ox O2 Delivery O2 Flow Rate FiO2 03/02/25 23:31 63 03/02/25 22:42 98.4 58 20 137/68 (91) 95 98.4 03/02/25 21:30 67 03/02/25 21:25 Room Air* 0 21 03/02/25 20:42 70 03/02/25 20:33 98.0 74 16 148/93 96 98.0 Laboratory Tests Test 03/02/25 20:39 White Blood Count 5.2 10^3/uL (4.4-10.8) Departure 1 Departure Time of Disposition: 22:41 Impression: Primary Impression: Chest pain Disposition: ADMITTED INPATIENT Condition: Stable Comments 64-year-old female with multiple risk factors presents with chest pain concerning for ACS. Patient admitted to hospitalist service for further treatment, evaluation and monitoring. Critical Care Note Critical Care Time?: No Stability Stability form required: No Heart Score Heart Score: Heart Score Response (Comments) Value History N/A 0 EKG N/A 0 Age N/A 0 Risk Factors N/A 0 Troponin N/A 0 Total 0 I personally scribed for KURTIS RAPHAEL MD ([email or web address]) on 03/02/25 at 21:03. Electronically submitted by Luis Enrique Moses ([email or web address]). I personally scribed for KURTIS RAPHAEL MD ([email or web address]) on 03/02/25 at 21:34. Electronically submitted by Luis Enrique Moses ([email or web address]). KURTIS RAPHAEL MD Mar 02, 2025 21:03
[2025-03-02 21:18] LABS: Hematocrit 40.2 % (36.0-46.0); Hemoglobin 13.7 g/dL (12.2-16.2); Mean Corpuscular Hemoglobin 30.7 pg (28.0-32.0); Mean Corpuscular Volume 90.1 fL (80.0-100.0); Nucleated Red Blood Cells % 0.1 %
[2025-03-02 21:28] LABS: Chloride 104 mmol/L (98-107); Potassium 3.7 mmol/L (3.5-5.1); Sodium 139 mmol/L (136-145)
[2025-03-02 21:29] LABS: Anion Gap 7 (5-15); Calcium 9.7 mg/dL (8.7-10.4); Carbon Dioxide 28 mmol/L (20-31)
[2025-03-02] MEDS: MORPHINE SULFATE INJ 2 MG/ml SYRG IV ONE (21:31)
[2025-03-02 21:34] LABS: BUN/Creatinine Ratio 23.1 (10.0-20.0); Blood Urea Nitrogen 15 mg/dL (9-23)
[2025-03-02 21:35] LABS: Glucose 136 mg/dL (74-106)
--- NOTE | 2025-03-02 21:39 | DVH ---
CLINICAL HISTORY: cp TECHNIQUE: 1 view of the chest was obtained. WID: COMPARISON: CT CT ANGIO CHEST CONTRAST on DOS: 04/26/24, CT ANGIO CHEST CONTRAST on DOS: 12/08/19, CHEST PORTABLE on DOS: 12/07/19 FINDINGS: Lungs: clear Cardiomediastinal silhouette: normal in size Bones: No acute osseous abnormality. Imaged Upper Abdomen: unremarkable. IMPRESSION: NO ACUTE CARDIOPULMONARY PROCESS.
[2025-03-02] MEDS ORDERED: ACETAMINOPHEN 325 MG TAB PO PRN (23:15)
[2025-03-02] MEDS ORDERED: HYDROcodone-ACET 5/325MG TAB PO PRN (23:15)
[2025-03-02] MEDS ORDERED: ONDANSETRON HCL 4 MG/2 ML VIAL IV PRN (23:15)
[2025-03-02] MEDS ORDERED: DOCUSATE SOD 100 MG CAP PO PRN (23:15)
[2025-03-02] MEDS ORDERED: MORPHINE SULFATE 4 MG/ML SYR/VIAL IV PRN (23:45)
--- NOTE | 2025-03-02 23:54 | DVHHP2 ---
History of Present Illness Reason for Visit: Chest pain History of Present Illness The patient is a 64-year-old female with past medical history of anxiety, hyperlipidemia, hypertension, thyroid disease and DVT who presented to [facility] ED with complaint of chest pain. Patient reports that she has been experiencing substernal chest pain, aching in nature, nonradiating, rating 6/10 numeric scale, associated with shortness of breaths, dizziness, fatigue, weakness, getting worse that prompted this visit. Patient was seen and evaluated in the ED, laboratory data shows WBC 5.2, platelets 258, sodium 139, potassium 3.7, BUN 15, creatinine 0.65, GFR 98, glucose 138, calcium 9.7, BNP 32.15, troponin < 3, blood pressure 137/68, heart rate 58, temperature 98.4 F, O2 saturation 95% on room air. Chest x-ray showed no acute cardiopulmonary process. Please see medication orders section in the computer. On my assessment, patient denied chest pain at this moment, no headache, dizziness, diaphoresis, shortness of breaths, no diarrhea, nausea, vomiting, fever, no chills. Patient was admitted for further evaluation and medical management. Past Medical History Anxiety, High Lipids, HTN, Thyroid, DVT Past Surgical History Denies all surgeries Family History Reviewed, noncontributory to the management of this case. Past Social History The patient lives at home, denies smoking, alcohol or illicit drugs abuse. Review of Systems Constitutional: Yes: Weakness; No: Fever, Chills, Sweats, Malaise, Other Eyes: No: Pain, Vision change, Conjunctivae inflammation, Eyelid inflammation, Other, Redness ENT: No: Ear pain, Ear discharge, Nose pain, Nose discharge, Nose congestion, Mouth pain, Mouth swelling, Throat pain, Throat swelling, Other Respiratory: No: Cough, Dry, Shortness of breath, SOB with excertion, Wheezing, Hemoptysis, Pleuritic Pain, Sputum, Wheezing, Other Cardiovascular: Chest Pain; No: Palpitations, Orthopnea, Paroxysmal Noc. Dyspnea, Edema, Lt Headedness, Other Gastrointestinal: No: Nausea, Vomiting, Abdominal Pain, Diarrhea, Constipation, Melena, Hematochezia, Other Genitourinary: No Dysuria, No Frequency, No Incontinence, No Hematuria, No Retention, No Other Musculoskeletal: No: other, neck pain, shoulder pain, arm pain, back pain, hand pain, leg pain, foot pain Skin: No: Rash, Lesions, Jaundice, Bruising, Other Neurological: No: Weakness, Numbness, Incoordination, Change in speech, Confusion, Seizures, Other Allergies: Coded Allergies: NO KNOWN ALLERGIES (Unverified , 12/08/19) Medications Current Medications Medications Dose Ordered Sig/Itzel Route Start Time Stop Time Status Last Admin Dose Admin Aspirin 81 mg DAILY PO 03/03/25 10:00 Levothyroxine Sodium 75 mcg QAM@0600 PO 03/03/25 06:00 Sertraline HCl 25 mg DAILY PO 03/03/25 10:00 Losartan Potassium 50 mg DAILY PO 03/03/25 10:00 Sodium Chloride 10 ml Q8HR IV 03/03/25 06:00 Acetaminophen/ Hydrocodone Bitart 1 tab Q4HP PRN PO 03/02/25 23:15 Ondansetron HCl 4 mg Q4HP PRN IV 03/02/25 23:15 Docusate Sodium 100 mg BIDPRN PRN PO 03/02/25 23:15 Acetaminophen 650 mg Q6HP PRN PO 03/02/25 23:15 Exam Vital Signs Vital Signs Date Time Temp Pulse Resp B/P (MAP) Pulse Ox O2 Delivery O2 Flow Rate FiO2 03/02/25 23:31 63 03/02/25 22:42 98.4 20 137/68 (91) 95 98.4 03/02/25 21:25 Room Air* 0 21 General Appearance: Alert, Oriented X3, Cooperative, No acute distress HEENT: Atraumatic, PERRLA, EOMI, Mucous membr. moist/pink Respiratory: Normal air movement Cardiovascular: Regular rate, Normal S1, Normal S2, No murmurs Abdominal: Normal bowel sounds, Soft, No tenderness, No hepatospenomegaly, No masses Extremities: No clubbing, No cyanosis, No edema, Normal pulses, No tenderness/swelling Skin: No rashes, No significant lesion Neuro: Normal speech, Normal tone, Sensation intact, Cranial nerves 3-12 NL, Reflexes 2+, Other (Generalized weakness) Psych/Mental Status: Mental status NL, Mood NL Labs/Xrays Labs Test 03/02/25 21:36 03/02/25 20:39 Range/Units Troponin I High Sensitivity < 3 L </=34 ng/L White Blood Count 5.2 4.4-10.8 10^3/uL Red Blood Count 4.46 4.0-5.20 10^6/uL Hemoglobin 13.7 12.2-16.2 g/dL Hematocrit 40.2 36.0-46.0 % Mean Corpuscular Volume 90.1 80.0-100.0 fL Mean Corpuscular Hemoglobin 30.7 28.0-32.0 pg Mean Corpuscular Hemoglobin Concent 34.1 32.0-36.0 g/dL Red Cell Distribution Width 13.2 11.8-14.3 % Platelet Count 258 140-450 10^3/uL Mean Platelet Volume 7.0 6.9-10.8 fL Neutrophils (%) (Auto) 56.0 37.0-80.0 % Lymphocytes (%) (Auto) 35.8 10.0-50.0 % Monocytes (%) (Auto) 6.3 0.0-12.0 % Eosinophils (%) (Auto) 1.3 0.0-7.0 % Basophils (%) (Auto) 0.6 0.0-2.0 % Neutrophils # (Auto) 2.9 1.6-8.6 10 ^3/uL Lymphocytes # (Auto) 1.9 0.4-5.4 10 ^3/uL Monocytes # (Auto) 0.3 0-1.3 10 ^3/uL Eosinophils # (Auto) 0.1 0-0.8 10 ^3/uL Basophils # (Auto) 0 0-0.2 10 ^3/uL Nucleated Red Blood Cells 0.1 % Sodium Level 139 136-145 mmol/L Potassium Level 3.7 3.5-5.1 mmol/L Chloride Level 104 98-107 mmol/L Carbon Dioxide Level 28 20-31 mmol/L Anion Gap 7 5-15 Blood Urea Nitrogen 15 9-23 mg/dL Creatinine 0.65 0.550-1.02 mg/dL Glomerular Filtration Rate Calc 98 >90 mL/min BUN/Creatinine Ratio 23.1 H 10.0-20.0 Serum Glucose 136 H 74-106 mg/dL Calcium Level 9.7 8.7-10.4 mg/dL B-Type Natriuretic Peptide 32.15 0-100 pg/mL PATIENT: ROMEL AMATO MACCT: [id number] UNIT: [id number] : 1960 LOC: ER ROOM / BED: / AGE / SEX: 64 / F ADM STATUS: REG ER SERVICE 05 ORDERING PHYSICIAN: KURTIS RAPHAEL MD PROCEDURE(s): CXR1 - CHEST XRAY 1 VIEW REASON: cp ORDER NUMBER(s): [id number], ACCESSION NUMBER(s): [id number] CLINICAL HISTORY: cp TECHNIQUE: 1 view of the chest was obtained. WID: COMPARISON: CT CT ANGIO CHEST CONTRAST on DOS: 04/26/24, CT ANGIO CHEST CONTRAST on DOS: 12/08/19, CHEST PORTABLE on DOS: 12/07/19 FINDINGS: Lungs: clear Cardiomediastinal silhouette: normal in size Bones: No acute osseous abnormality. Imaged Upper Abdomen: unremarkable. IMPRESSION: NO ACUTE CARDIOPULMONARY PROCESS. SEPSIS Sepsis Screen Date sepsis recognized/suspect: Mar 02, 2025 Time Sepsis recognized/suspect: 2035 Recent Procedure: No On Antibiotic Therapy: No Respiratory Rate >20: No Heart Rate >90: No Temp<36 C (96.8 F) or >38.3 C: No SBP <90 or MAP <65 mmHG: No New Acute Mental Status Change: No Is the patient on CPAP, BIPAP,: No Physician Orders Electrocardigram (03/02/25 20:50) Chest Xray 1 View (03/02/25 21:06) Vital Signs Q1HR (03/02/25 21:06) Saline Lock (03/02/25 21:06) Mold Maker (03/02/25 ) Troponin-I Hs (03/03/25 00:06) Aspirin Chewable Tablet (03/03/25 10:00) Levothyroxine Tablet (Synthroid Tablet) (03/03/25 06:00) Sertraline Hcl (Zoloft) (03/03/25 10:00) Losartan Tablet (Cozaar Tablet) (03/03/25 10:00) Allergies (03/02/25 23:11) Code Status (03/02/25 23:11) Sodium Chloride Lock (Saline Lock Ns) (03/03/25 06:00) Oxygen Per Hour (03/02/25 23:11) Hydrocodone-Acet 5/325mg Tab ([place] 5/32 (03/02/25 23:15) Ondansetron Hcl (Zofran) (03/02/25 23:15) Docusate Sodium Capsule (Colace Capsule) (03/02/25 23:15) Complete Blood Count (03/03/25 04:00) Comprehensive Metabolic Panel (03/03/25 04:00) Cardiac Diet-2gna,Lofat,Lochol (03/03/25 Breakfast) Condition: Serious (03/02/25 23:11) Acetaminophen Tablet (Tylenol Tablet) (03/02/25 23:15) Bedrest With Bathroom Privileg (03/02/25 23:11) Maintain Bed Rest (03/02/25 23:11) Sequential Compression Device (03/02/25 ) Admit (03/02/25 23:53) Nitroglycerin Sublingual (Ntrostat Subli (03/03/25 00:00) Morphine Sulfate Injection (03/03/25 00:00) Stat Ekg For Chest Pain (03/02/25 23:53) Notify Md Of Changes From Base (03/02/25 23:53) Pest Control Chemical Technician For 24 Hours (03/02/25 23:53) Emergency Dysrhythmia Protocol (03/02/25 23:53) Rhythm Strips Once Every Shift (03/02/25 23:53) Oxygen By Nasal Cannula (03/02/25 23:53) Vital Signs Date Time Temp Pulse Resp B/P (MAP) Pulse Ox O2 Delivery O2 Flow Rate FiO2 03/02/25 23:31 63 03/02/25 22:42 98.4 58 20 137/68 (91) 95 98.4 03/02/25 21:30 67 03/02/25 21:25 Room Air* 0 21 03/02/25 20:42 70 03/02/25 20:33 98.0 74 16 148/93 96 98.0 Laboratory Tests Test 03/02/25 20:39 White Blood Count 5.2 10^3/uL (4.4-10.8) Medications Medications Dose Ordered Sig/Itzel Route Start Time Stop Time Status Last Admin Dose Admin Aspirin 324 mg ONCE ONCE PO 03/02/25 21:15 03/02/25 21:16 DC 03/02/25 21:25 324 MG Assessment/Plan Assessment/Plan Chest pain Generalized weakness Plan 1. Admit to telemetry unit 2. Breathing treatment 3. Pain control management 4. Management of fluids and electrolytes 5. Consultation for hospitalist 6. Diagnostic tests chest x-ray 7. DVT prophylaxis-on aspirin 8. Repeat labs CBC, CMP in a.m. 9. Continue with current medical management 10. Treatment plan discussed with patient and RN. Patient verbalized understanding. Plan discussed with: Patient, Other (RN) My Orders Orders - JOSH GAVIN DNP Procedure Category Date Status Time Aspirin Chewable PHA 03/03/25 In Process Tablet 10:00 Levothyroxine Tablet PHA 03/03/25 In Process (Synthroid Tablet) 06:00 Sertraline Hcl PHA 03/03/25 In Process (Zoloft) 10:00 Losartan Tablet PHA 03/03/25 In Process (Cozaar Tablet) 10:00 Allergies ANDREA 03/02/25 In Process 23:11 Code Status CODE 03/02/25 Transmitted 23:11 Sodium Chloride Lock PHA 03/03/25 In Process (Saline Lock Ns) 06:00 Oxygen Per Hour RT 03/02/25 Transmitted 23:11 Hydrocodone-Acet PHA 03/02/25 In Process 5/325mg Tab ([place] 23:15 Ondansetron Hcl PHA 03/02/25 In Process (Zofran) 23:15 Docusate Sodium PHA 03/02/25 In Process Capsule (Colace 23:15 Complete Blood Count LAB 03/03/25 Verified 04:00 Comprehensive LAB 03/03/25 Verified Metabolic Panel 04:00 Cardiac DIET 03/03/25 Transmitted Diet-2gna,Lofat,Lochol Breakfast Condition: Serious ANDREA 03/02/25 In Process 23:11 Acetaminophen Tablet PHA 03/02/25 In Process (Tylenol Tablet) 23:15 Bedrest With Bathroom ANDREA 03/02/25 In Process Privileg 23:11 Maintain Bed Rest ANDREA 03/02/25 In Process 23:11 Sequential ANDREA 03/02/25 In Process Compression Device Admit ADMIT 03/02/25 Verified 23:53 Nitroglycerin PHA 03/03/25 Verified Sublingual (Ntrostat 00:00 Morphine Sulfate PHA 03/03/25 Verified Injection 00:00 Stat Ekg For Chest ANDREA 03/02/25 Verified Pain 23:53 Notify Of Changes ANDREA 03/02/25 Verified From Base 23:53 Pest Control Chemical Technician For ANDREA 03/02/25 Verified 24 Hours 23:53 Emergency Dysrhythmia ANDREA 03/02/25 Verified Protocol 23:53 Rhythm Strips Once ANDREA 03/02/25 Verified Every Shift 23:53 Oxygen By Nasal RT 03/02/25 Verified Cannula 23:53 Problem List: (1) Chest pain (2) Generalized weakness Date of Service: Mar 02, 2025 Billing Provider: JOSH GAVIN DNP Common Visit Codes: [id number] INP/OBS CARE (HIGH) JOSH GAVIN DNP Mar 02, 2025 23:54
[2025-03-03] MEDS ORDERED: NITROGLYCERIN 0.4 MG SL TAB SL PRN
--- NOTE | 2025-03-03 01:16 | ECG ---
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
[2025-03-03 03:13] VITALS: BP 114/63; PULSE 66; RESP 18; TEMP 97.7; O2SAT 96
[2025-03-03] MEDS ORDERED: AMLO1TAB23 PO (04:09)
[2025-03-03] MEDS ORDERED: LOSA-535 PO (04:09)
[2025-03-03] MEDS ORDERED: SERT-206 PO (04:09)
[2025-03-03] MEDS ORDERED: LEVO75TA6 PO (04:09)
[2025-03-03 05:00] VITALS: BP 94/60; PULSE 64; RESP 18; TEMP 97.6; O2SAT 93
[2025-03-03 05:25] VITALS: BP 106/68; PULSE 64
[2025-03-03 05:31] LABS: Urine Protein, UAD Negative (Negative)
[2025-03-03] MEDS: LEVOTHYROXINE SODIUM 25 MCG TAB PO SCH (05:32)
[2025-03-03] MEDS: SODIUM CHLOR 0.9% PF (SALINE LOCK) 10ML VIAL/SYR IV SCH (05:33)
[2025-03-03 07:45] LABS: Hematocrit 36.9 % (36.0-46.0); Hemoglobin 12.8 g/dL (12.2-16.2); Mean Corpuscular Hemoglobin 30.6 pg (28.0-32.0); Mean Corpuscular Volume 88.4 fL (80.0-100.0); Nucleated Red Blood Cells % 0.0 %
[2025-03-03 07:53] LABS: Alanine Aminotransferase 18 U/L (7-40); Alkaline Phosphatase 98 U/L (46-116); Anion Gap 7 (5-15); BUN/Creatinine Ratio 23.7 (10.0-20.0); Blood Urea Nitrogen 14 mg/dL (9-23); Calcium 8.8 mg/dL (8.7-10.4); Carbon Dioxide 28 mmol/L (20-31); Chloride 106 mmol/L (98-107); Glucose 97 mg/dL (74-106); Potassium 3.6 mmol/L (3.5-5.1); Sodium 141 mmol/L (136-145); Total Protein 6.3 g/dL (5.7-8.2)
[2025-03-03 07:54] LABS: Albumin 3.7 g/dL (3.2-4.8)
[2025-03-03 07:55] LABS: Bilirubin, Total 0.5 mg/dL (0.2-1.0)
[2025-03-03 08:00] VITALS: PULSE 63; RESP 20; O2SAT 95
[2025-03-03 08:44] VITALS: BP 91/48; PULSE 63; RESP 20; TEMP 98.1; O2SAT 95
[2025-03-03] MEDS: SERTRALINE HCL 50 MG TAB PO SCH (09:41)
[2025-03-03] MEDS: LOSARTAN POTASSIUM 50 MG TAB PO SCH (09:42)
[2025-03-03 12:57] VITALS: BP 120/70; PULSE 66; RESP 20; TEMP 98.4; O2SAT 97
[2025-03-03 15:03] LABS: Hepatitis B Surface Antigen Negative (Negative)
[2025-03-03 15:24] LABS: Hepatitis C Antibody Negative (Negative)
== END 2025-03-03 14:09 | disposition left against medical advice (07) | DRG 313 ==
LOC: ER 20:31 → OVERFLOW 23:53 → TELE-CENTR 03-03 02:11
PROVIDERS: ADMIT Internal Medicine; ATTEND Internal Medicine
DX: R07.89 Other chest pain (principal); E78.5 Hyperlipidemia, unspecified; I10 Essential (primary) hypertension; F41.9 Anxiety disorder, unspecified; Z53.29 Procedure and treatment not carried out because of patient's decision for other reasons; Z86.718 Personal history of other venous thrombosis and embolism
CPT/HCPCS: 36415; 71045; 80048; 80053; 81001; 83880; 84484; 85025; 86803; 87340; 93005; G0378